=== PATIENT | male | born 1980 | race Caucasian/White ===

== ENCOUNTER 2016-08-19 16:45 | Emergency (ER) | payer BC, OTHER ==
[2016-08-19] MEDS ORDERED: ACETAMINOPHEN 325 MG TABLET PO STA (17:59)
[2016-08-19] MEDS ORDERED: ACETAMINOPHEN 325 MG TABLET PO ONE (18:07)
[2016-08-19] MEDS ORDERED: SODIUM CHLORIDE 0.9% 1,000 ML IV ONE ×2 (18:19→20:00)
[2016-08-19] MEDS ORDERED: ONDANSETRON 4 MG/2 ML VIAL IVP STA (18:19)
[2016-08-19] MEDS ORDERED: ONDANSETRON 4 MG/2 ML VIAL ONE (18:34)
[2016-08-19] MEDS ORDERED: DEXAMETHASONE 10 MG/ML VIAL IVP STA (20:25)
[2016-08-19] MEDS ORDERED: DEXAMETHASONE 10 MG/ML VIAL ONE (20:27)
== END 2016-08-19 20:40 | disposition home or self-care (01) ==
DX: D69.0 Allergic purpura (principal); R11.2 Nausea with vomiting, unspecified; D72.829 Elevated white blood cell count, unspecified
CPT/HCPCS: 36415; 80048; 81001; 85025; 85610; 87070; 87430; 96374; 96375; 99283; 99284; A9270

== ENCOUNTER 2016-08-25 13:45 | Outpatient (CLI) | payer OTHER | END 2016-08-25 23:59 | DX: R21 Rash and other nonspecific skin eruption (principal); R80.9 Proteinuria, unspecified; D72.829 Elevated white blood cell count, unspecified ==

== ENCOUNTER 2023-04-03 09:15 | Outpatient (CLI) | payer BC, OTHER ==
--- NOTE | 2023-04-03 12:25 | XRAY Report ---
PROCEDURE: Knee 3 View RT INDICATIONS: RIGHT KNEE PAIN TECHNIQUE: 3 views of the knee(s) were acquired. COMPARISON: None. FINDINGS: Bones: No fractures or dislocations. No suspicious bony lesions. Soft tissues: No knee joint effusion. No suspicious soft tissue calcifications or masses. IMPRESSION: No acute bony abnormality. Reviewed by: David Herrera on 04/03/2023 11:24 AM [facility] Approved by: David Herrera on 04/03/2023 11:24 AM [facility] Station ID: [id number]
== END 2023-04-03 09:30 | disposition home or self-care (01) ==
LOC: DI.N 09:15
PROVIDERS: ATTEND Physician Assistant Medical
DX: M25.561 Pain in right knee (principal)

== ENCOUNTER 2023-04-11 08:15 | Outpatient (CLI) | payer OTHER, BC ==
--- NOTE | 2023-04-11 12:10 | XRAY Report ---
PROCEDURE: Knee 2 View RT INDICATIONS: BILAT AP, RIGHT TUNNEL, RIGHT KNEE PAIN TECHNIQUE: 2 views of the knee(s) were acquired. COMPARISON: Right knee x-ray 04/03/2023 FINDINGS: Bones: No fractures or dislocations. No suspicious bony lesions. Soft tissues: No suspicious soft tissue calcifications or masses. IMPRESSION: No acute bony abnormality. No significant degenerative changes. Reviewed by: Lowell Stroud MD on 04/11/2023 12:08 PM PST Approved by: Lowell Stroud MD on 04/11/2023 12:08 PM PST Station ID: [id number]
== END 2023-04-11 23:59 | disposition home or self-care (01) ==
LOC: DI.WOS 08:15
PROVIDERS: ATTEND Physician Assistant Surgical
DX: M25.561 Pain in right knee (principal)

== ENCOUNTER 2023-11-03 16:27 | Outpatient (CLI) | payer BC | END 2023-11-03 16:28 | disposition home or self-care (01) | LOC: LAB 16:27 | PROVIDERS: ATTEND Emergency Medicine | DX: Z20.1 Contact with and (suspected) exposure to tuberculosis (principal) | CPT/HCPCS: 81599 ==